=== PATIENT | female | born 1995 | race Caucasian/White ===

== ENCOUNTER 2018-08-26 22:17 | Emergency (ER) | payer SELFPAY ==
[2018-08-26 22:18] VITALS: BP 120/71; PULSE 101; RESP 16; TEMP 36.6; O2SAT 100; BMI 30.2
--- NOTE | 2018-08-26 22:45 | ED.VIS.PSYCH ---
History of Present Illness Chief Complaint: Suicidal Informant: Patient Onset: Month(s) - 2-3 Context: Gradual Onset Timing: Continuous Current Severity: Severe Maximum Severity: Severe Worsened by: Situational factors - pt does not specify Narrative: Patient has been depressed for a long time, in the past couple months she has attempted suicide several times according to her, multiple times trying to cut herself with dull knives, tonight she states she had a bad day and was afraid that she was actually going to kill herself and when she felt this way, she called a friend who then called authorities and she was brought to the emergency department voluntarily. She wants help. She does not use drugs or alcohol. Her last tetanus shot was 8 or 9 years ago. She prefers not to be updated if she does not have to be at this time. This is the first time she has been in the emergency department for this in the past several months. Past Medical History - Allergies and Home Meds Allergies/Adverse Reactions: Allergies No Known Allergies Allergy (Verified 08/26/18 22:23) Primary Care Physician: NOT,DEFINED [NON-STAFF] - Past Medical History: None Smoking Status: Never smoker Alcohol: None Drugs: None Review of Systems General: Denies: Chills, Fever, Sweats Eyes: Denies: Visual changes - bilaterally, Diplopia ENT: Denies: Rhinorrhea, Sore throat Cardiovascular: Denies: Chest pain, Palpitations Respiratory: Denies: Dyspnea, Cough, Dyspnea on exertion Gastrointestinal: Denies: Abdominal pain, Nausea, Vomiting, Diarrhea, Melena, Hematochezia Genitourinary: Denies: Dysuria, Hematuria, Frequency Musculoskeletal: Denies: Neck pain, Back pain, Swelling, Extremity Pain Skin: Reports: Abrasions. Denies: Rash Neurological: Denies: Headache, Weakness, Parasthesia, Numbness Psych: Reports: Suicidal thoughts, Suicidal ideations Endocrine: Denies: Heat intolerance, Cold intolerance Hematologic: Denies: Easy bruising, Easy bleeding Allergy: Denies: Swelling of the mouth, Swelling of the tongue Physical Exam Vital Signs/Narrative: Vital Signs Temp Pulse Resp BP Pulse Ox 08/26/18 22:18 97.9 F 101 H 16 120/71 100 Inital Vital Signs reviewed: Yes General: Well nourished, Well developed, - - male features Head: Normocephalic, Atraumatic Eyes: Perrl, EOMI ENT: Moist mucous membranes, No rhinorrhea Neck: Supple, Nontender Cardiovascular: Regular rate, Regular rhythm, No murmurs Respiratory: No distress, CTA bilaterally, Chest nontender Abdomen: Soft, Nontender, Nondistended, Normal bowel sounds Back: Nontender, Normal Inspection Extremities: Nontender, No Edema Skin: Normal color, No rash, Trauma - superficial healing abrasions LUE, no lacerations, no signs of infection Neurological: Alert, Oriented x3, Cranial nerves II-XII grossly intact, Normal Strength, Normal Sensation Psych: Normal Speech Pattern, Logical sequential goal directed thoughts, Normal Stable Appropriate Affect, Good Insight, Good Judgement, Normal Appearance, Depressed, Suicidal thoughts. Negative for: Homicidal thoughts, Hallucinations, Delusions, Paranoid Ideation Diagnostic/Tx/Re-eval Laboratory Results 08/26/18 08/26/18 08/26/18 22:54 22:54 22:54 WBC 17.0 H RBC 4.68 Hgb 13.1 Hct 40.1 MCV 85.7 MCH 28.0 MCHC 32.7 RDW 13.4 RDW Differential 42.0 Plt Count 429 MPV 9.2 Immature Gran % (Auto) 0.200 Neut % (Auto) 82.7 H Lymph % (Auto) 8.6 L Bullock % (Auto) 8.1 Eos % (Auto) 0.3 Baso % (Auto) 0.1 Absolute Neuts (auto) 14.0 H Absolute Lymphs (auto) 1.46 Total Counted Not Reportable Sodium 137 Potassium 3.5 Chloride 105 Carbon Dioxide 23.0 Anion Gap 9 BUN 12 Creatinine 0.80 Estim Creat Clear Calc 108.17 Est GFR (MDRD) Af Amer 155 Est GFR (MDRD) Non-Af 128 BUN/Creatinine Ratio 14.9 Glucose 97 Calcium 9.4 Total Bilirubin 0.40 AST 14 L ALT 20 Alkaline Phosphatase 81 Total Protein 8.6 H Albumin 4.1 Globulin 4.5 H Albumin/Globulin Ratio 0.9 Ethyl Alcohol < 3.0 Social work saw the patient and discussed with her at length, she contracts for safety and would be comfortable going home with her mother. Her mother is comfortable taking her home and taking responsibility for her, we set her up for a counseling appointment tomorrow morning. Mom is asking for something for anxiety to use as needed, I will write her a short prescription for Vistaril, I do not think she needs controlled substances from us at this time since she is seeing counseling tomorrow. The patient is very insightful and appears to be using good judgment, tried to bring help to herself tonight, and I think this is a reasonable plan. ED Disposition - Plan for ED Patient: Disposition: Home or Assisted Living Chief Complaint: Suicidal Diagnosis: Depression, major, Suicidal thoughts, Acute reaction to situational stress Instructions: ED Contract, No Harm, ED Depression Prescriptions: hydrOXYzine pamoate capsule [Vistaril] 25 - 50 mg PO TID PRN PRN #15 cap PRN Reason: Anxiety Referrals: Counseling,Center [GROUP OF PHYSICIANS] - Keep Yuliana appointment (tomorrow AM)
[2018-08-26 23:05] VITALS: RESP 16
[2018-08-26 23:08] LABS: Absolute Lymphocyte Count 1.46 X10^3/ul (0.83-4.51); Basophil# 0.02 X10^3/uL; Basophil% 0.1 % (0-1); Eosinophil# 0.05 X10^3/uL; Eosinophils% 0.3 % (0-5); Hematocrit 40.1 % (37-47); Hemoglobin 13.1 g/dl (12.0-15.0); Lymphocyte # 1.46 X10^3/ul (4.0); Lymphocyte % 8.6 % (19-41); Mean Corp Hgb Conc 32.7 g/gl (32-36); Mean Corpuscular Volume 85.7 fL (81-99); Mean Platelet Vol. 9.2 fl (6.2-12.0); Monocyte# 1.37 X10^3/uL; Monocyte% 8.1 % (0-10); Neutrophil # 14.02 X10^3/uL (2.7-7.7); Neutrophil % 82.7 % (47-70); Platelet Count 429 K/mm3 (150-450); RBC Distribution Width CV 13.4 % (11.6-14.6); Red Blood Count 4.68 M/mm3 (4.2-5.4)
[2018-08-26 23:14] LABS: POSITIVE COUNT NO; POSITIVE DIFFERENTIAL NO; POSITIVE MORPHOLOGY NO
[2018-08-26 23:21] LABS: ALB/GLOB Ratio 0.9 RATIO (0.9-2.4); AST(SGOT) 14 U/L (15-37); Alanine Aminotransfer ALT/SGPT 20 U/L (13-56); Albumin, Serum 4.1 g/dL (3.2-5.0); Alkaline Phosphatase 81 U/L (45-117); Anion Gap 9 (5-15); BUN 12 mg/dL (7-18); BUN/Creat Ratio 14.9 RATIO (10-20); Calcium,Total 9.4 mg/dL (8.5-10.1); Chloride 105 mmol/L (98-107); EST Glomerular Filtration Rate 128 mL/min (>60); Est Glom Filt Rate - Afr Amer 155 mL/min (>60); Estimated Creatinine Clearance 108.17 ml/min; Globulin 4.5 g/dL (2.2-4.2); Glucose 97 mg/dL (74-106); Potassium 3.5 mmol/L (3.5-5.1); Protein, Total 8.6 g/dL (6.4-8.2); Sodium Level 137 mmol/L (136-145)
[2018-08-26 23:23] LABS: Alcohol, Blood (Medical)-Serum < 3.0 mg/dL
--- NOTE | 2018-08-26 23:59 | ED.RN ---
SITMANUEL D/C'D PER MD ORDER. CLOTHES GIVEN BACK TO PATIENT. MOTHER TO TELETYPIST CHILD. SENT HOME WITH SAFETY PLAN VIA SOCIAL WORK
--- NOTE | 2018-08-27 00:09 | CM.ED ---
Addendum entered by Ethel Lizama 08/27/18 00:38: CASE CONFERENCE WITH PHYSICIAN WHO IS IN AGREEMENT WITH SAFETY PLAN. PHYSICIAN TO PRESCRIBE MEDICATION FOR ANXIETY. REFERRAL FAXED TO THE [facility] FOR A 10AM APPOINTMENT. PATIENT TO CALL [facility] IN THE MORNING TO UPDATE ON INSURANCE INFORMATION AND SOCIAL SECURITY NUMBER. THIS WORKER TO FOLLOW UP ONCE IN HOUSE TOMORROW MORNING. PHYSICIAN, PATIENT, PATIENT'S MOTHER AND FRIEND ALL IN AGREEMENT WITH PLAN. PATIENT TO D/C HOME WITH MOTHER AT THIS TIME. Original Note: SOCIAL SERVICE ASSESSMENT REFERRAL DATE: 08/26/18 DATE OF ASSESSMENT: 08/26/18 INFORMANT: PHYSICIAN AND NURSE REASON FOR CONSULT: SUICIDAL IDEATION, NO PLAN. INFORMATION OBTAINED FROM: PATIENT, PT'S FRIEND, ANDRAE VITALE AND PATIENT'S MOTHER, IVÁN GARCIA [phone] LIVING ARRANGEMENTS: PATIENT LIVES HOME WITH MOTHER. 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 SUPPORTS: PATIENT REPORTS GOOD SUPPORT FROM MOTHER AND FRIENDS. SOCIAL/FAMILY STRESSORS: PATIENT STATES RECENTLY WENT THROUGH A BREAK UP AND GIRLFRIEND MOVED OUT A FEW DAYS AGO. PATIENT STATES HAS A HARD TIME SHARING FEELINGS AND THOUGHTS WITH MOTHER, BUT KNOWS SHE WOULD SUPPORT HIM. MENTAL HEALTH HX:PATIENT ADMITS TO HX OF MENTAL HEALTH-ANXIETY AND DEPRESSION AND STATES FOLLOWED WITH JOLENE AT [facility] LAST YEAR. PATIENT REPORTS WAS NEVER PRESCRIBED ANY MEDICATION FOR TREATMENT. SUBSTANCE ABUSE HX: PATIENT DENIES ANY HX OF SUBSTANCE ABUSE. INTERVENTIONS: SAFETY PLAN, REFERRAL TO THE [facility]. ASSESSMENT:PT IS A 23 Y/O MALE WHO PRESENTS TO THE ED FOR SUICIDAL IDEATION. PATIENT REPORTS HAS BEEN HAVING THOUGHTS OVER THE LAST FEW WEEKS. PATIENT STATES RECENTLY WENT THROUGH A BREAK UP AND GIRLFRIEND MOVED OUT A FEW DAYS AGO. PATIENT STATES THIS EVENT INTENSIFIED HIS DEPRESSION AND ANXIETY. PATIENT HAS GOOD INSIGHT INTO HIS MENTAL HEALTH. PATIENT ADMITS TO PREVIOUS THOUGHTS AND STATES HAS ACTED ON THOUGHTS, BUT WAS NOT ABLE TO GO THROUGH WITH IT. PATIENT STATES ALMOST FEELS LIKE HIS ANXIETY AND PANIC GET SO OUT OF CONTROL THAT HE BLACKS OUT. PATIENT DENIES ANY PLAN TO TAKE HIS OWN LIFE. PATIENT VOICED FEELINGS OF HOPELESSNESS. PATIENT DENIES ANY HX OF SUBSTANCE ABUSE, BUT STATES DOES DRINK SOCIALLY WITH FRIENDS. PATIENT KEPT EYE CONTACT WITH THIS WORKER THROUGHOUT ASSESSMENT AND WAS CALM AND COOPERATIVE WHEN ANSWERING QUESTIONS. DISCUSSED SAFETY PLAN FOR HOME GOING AND PATIENT WAS IN AGREEMENT WITH PLAN. INFORMED PATIENT THIS WORKER WILL DISCUSS WITH PHYSICIAN AND IF PHYSICIAN IN AGREEMENT WILL SET UP SAFETY PLAN. PATIENT GAVE THIS WORKER PERMISSION TO CALL HIS MOTHER, IVÁN TO DISCUSS THIS WORKER'S ASSESSMENT AND PLAN FOR SAFETY. UPDATED NURSING ON THIS WORKER ASSESSMENT. WILL FOLLOW. PLAN: SAFETY PLAN WITH MOTHER AND FRIEND, ANDRAE WITH FOLLOW UP FOR COUNSELING SERVICES.
[2018-08-27 00:32] VITALS: RESP 16
--- NOTE | 2018-08-27 00:35 | CM.ED ---
SOCIAL WORK NOTE THIS WORKER CALLED PT'S MOTHER WITH PT'S PERMISSION TO DISCUSS ED VISIT AND THIS WORKER'S ASSESSMENT. MOTHER IS AWARE OF PT'S MENTAL HEALTH CONCERNS. DISCUSSED THIS WORKER'S ROLE AND PLAN FOR D/C PLAN HOME WITH SAFETY PLAN IN PLACE. MOTHER IS IN AGREEMENT AND STATES PT WILL NOT BE LEFT HOME ALONE. MOTHER TO COME TO HOSPITAL TO TRANSPORT PT HOME. PT'S FRIEND, ANDRAE IS ALSO HERE WITH PT AT THIS TIME. INFORMED MOTHER THIS WORKER TO [facility]. MOTHER IN AGREEMENT. MOTHER STATES PT DOES HAVE INSURANCE, BUT IS UNSURE OF PROVIDER. THIS WORKER TO AWAIT MOTHER'S ARRIVAL.
--- NOTE | 2018-08-27 10:53 | CM.ED ---
SOCIAL WORK NOTE THIS WORKER FOLLOWED UP WITH [facility]. PT DID CALL THIS MORNING AND WAS TO BE IN AT 10AM FOR ASSESSMENT. ALEX DUBOIS, SENIOR AUTOMATION ENGINEER, [employer] WORKER APPRENTICE.
== END 2018-08-27 00:33 | disposition home or self-care (01) ==
PROVIDERS: Emergency Provider Emergency Medicine
DX: F32.9 Major depressive disorder, single episode, unspecified (principal); R45.851 Suicidal ideations; F43.0 Acute stress reaction
CPT/HCPCS: 80053; 80320; 85025; 99283; G0480